=== PATIENT | male | born 1985 | race Caucasian/White ===

== ENCOUNTER 2017-06-07 21:19 | Emergency (ER) | payer OTHER ==
[~2017-06-07] VITALS: Ht 188 cm; Wt 127.0 kg
[2017-06-07] MEDS ORDERED: IBUPROFEN 800 MG TABLET PO ONE (23:45)
[2017-06-08] MEDS ORDERED: IBUPROFEN 800 MG TABLET ONE (00:01)
[2017-06-08] MEDS ORDERED: HYDROCODONE/APAP 5-325MG TABLET PO ONE (00:15)
[2017-06-08] MEDS ORDERED: HYDROCODONE/APAP 5-325MG TABLET ONE (00:30)
--- NOTE | 2017-06-08 01:36 | NUR ---
Patient discharged to home in stable conditon. Written and verbal after care instructions given. Patient verbalizes understanding of instructions.
== END 2017-06-08 01:36 | disposition home or self-care (01) ==
LOC: ER 21:23
DX: S16.1XXA Strain of muscle, fascia and tendon at neck level, initial encounter (principal); V49.49XA Driver injured in collision with other motor vehicles in traffic accident, initial encounter; Y93.89 Activity, other specified; Y92.410 Unspecified street and highway as the place of occurrence of the external cause; Y99.8 Other external cause status
CPT/HCPCS: 72125; 99284; A4663